=== PATIENT | female | born 1925 | race Caucasian/White ===

== ENCOUNTER 2016-11-14 12:02 | Inpatient (IN) | payer MEDICARE, BC, OTHER ==
[~2016-11-14] VITALS: Ht 175.3 cm; Wt 59.1 kg
[~2016-11-14 12:02] MED LIST: ACET325T9 PO; ALPR0.5T PO; AZEL137S3 NS; Amoxicillin/Potassium Clav PO; BRIN10DR EACHEYE; DABI75CA3 PO; FISH1CAP PO; LEVO75TA PO; LEVO75TA5 PO; LORA0.5T PO; LOSA50TA6 PO; MAGN400O4 PO; METR70GE14 VG; MOME13HF IH; MONT10TA9 PO; MULT-658 PO; OMEP40CA5 PO; PRED-220 PO; PROAIR HFA8.5 GM IH; TIOT18CA IH; TRIA15OI TP; XOPENEX0.63 MG/3 IH; [UNRECOGNIZED DRUG - OTHER]
--- NOTE | 2016-11-14 12:20 | RAD ---
Exam performed: CT scan of the head without contrast. Date of Service: 11/14/16. Comparison: 11/03/16. Clinical History: Altered mental status, code stroke. Technique: Helical acquisitions are obtained from the foramen magnum to the vertex without intravenous administration of contrast. Findings: There is prominence of cortical sulci and ventricular system compatible with age related atrophy. There are areas of low-attenuation in both periventricular deep white matter suggesting small vessel ischemic changes. There is a large right lacunar infarct. Normal gutierrez-white differentiation is maintained. There is no extra axial fluid collection, intraparenchymal hemorrhage or mass lesion. The visualized portions of the orbits, paranasal sinuses and the mastoid air cells appear clear. The calvarium is intact. Impression: 1. Age-appropriate atrophy without any acute intracranial process. PQRS Compliance Statement: One or more of the following individualized dose reduction techniques were utilized for this examination: 1. Automated exposure control 2. Adjustment of the mA and/or kV according to patient size 3. Use of iterative reconstruction technique Results of this negative stroke protocol CT scan of the brain were given to Dr. Hale in the ER soon after completion of the study at 12.16 PM
--- NOTE | 2016-11-14 12:53 | EKG ---
[facility] [address] [place] [address] Test Date: 2016-11-14 Test Time: 12:31:44 Pat Name: MAYKEL CARTER Department: Room: Gender: F Manager Game: : [phone] Requested By: Guanakito STANTON Order Number: [id number] Reading MD: Matthew Adams Measurements Intervals [place] Rate: 101 P: DE: QRS: -13 QRSD: 82 T: -76 QT: 320 QTc: 416 Interpretive Statements NON-SPECIFIC ST/T CHANGES ATRIAL FIBRILLATION WITH CONTROLLED VENTRICULAR RESPONSE Electronically Signed On 11-20-2016 14:19:49 [employer] SERVICES SPECIALIST by Matthew Adams
--- NOTE | 2016-11-14 13:07 | RAD ---
Exam performed: One view chest. Indication: altered mental status; recent pneumonia Date of Service: 11/14/2016 2:33 PM Comparison: None available. Single AP upright portable view chest findings: Cardiomediastinal silhouette is within limits of normal. Ectatic tortuous aorta. Scattered airspace opacities are seen in both lungs which appear improved since previous study. No pleural effusion or pneumothorax is detected. The bony structures are normal. Impression: Scattered infiltrates throughout both lungs appears significantly improved since previous study.
[2016-11-14 13:08] LABS: BASO # 0.1 x10^3/uL (0.0-0.2); BASO % 0 % (0-3); EOS % 0 % (0-3); HEMATOCRIT 34.2 % (36.0-47.0); HEMOGLOBIN 11.1 g/dL (12.0-15.5); LYMPH # 1.4 x10^3/uL (1.0-4.8); LYMPH % 8 % (24-48); MEAN CORPUSCULAR HEMOGLOBIN 30 pg (25-35); MEAN CORPUSCULAR HGB CONC 33 g/dL (31-37); MEAN CORPUSCULAR VOLUME 91 fL (79-100); MONO % 6 % (0-9); NEUT % 86 % (31-73); PLATELET COUNT 431 x10^3/uL (140-400); RED BLOOD COUNT 3.76 x10^6/uL (3.50-5.40); RED CELL DISTRIBUTION WIDTH 14.2 % (11.5-14.5); WHITE BLOOD COUNT 16.9 x10^3/uL (4.0-11.0)
[2016-11-14 13:21] LABS: CALCIUM 9.4 mg/dL (8.5-10.1); CREATININE 1.4 mg/dL (0.6-1.0); GFR 35.4; POTASSIUM 3.6 mmol/L (3.5-5.1)
--- NOTE | 2016-11-14 13:24 | PHYS DOC ---
Past Medical History Past Medical History: A-Fib, Asthma, Bronchitis, CAD, COPD, GERD, Hypertension , Hypothyroid, Pneumonia, Stroke, UTI Past Surgical History: Cholecystectomy, Hysterectomy, Knee Replacement Alcohol Use: None Drug Use: None Adult General Chief Complaint Chief Complaint: ALTERED MENTAL STATUS HPI HPI Patient is a 89 year old female who presents with from nursing facility for acute mental status changes. Nursing facility states she was last known normal approximately 11:30 at rehabilitation, but sons notes she has not been entirely normal day. She has been sleepy for most of the day, but was following commands and speaking. When she returned from rehabilitation, she was no longer speaking or following commands. Sons state since her discharge she has continued to take thickened liquids in very small amounts for her meals and has continued dysphagia. They otherwise deny vomiting or diarrhea. The patient does not answer any questions. Review of Systems Review of Systems Unable to obtain secondary to clinical status Allergies Allergies Allergies Coded Allergies Type Severity Reaction Last Updated Verified doxycycline Allergy Intermediate 10/27/16 Yes morphine Allergy Intermediate 10/27/16 Yes naproxen Allergy Intermediate 10/27/16 Yes Physical Exam Physical Exam Constitutional: Well developed, well nourished, severe distress, non-toxic appearance. [] HENT: Normocephalic, atraumatic, bilateral external ears normal, oropharynx moist, no oral exudates, nose normal. [] Eyes: Right pupil midsize and minimally reactive, left pupil midsize and briskly reactive, pupils equal, conjunctiva normal, no discharge. Unable to assess extraocular movements as she does not follow commands. [] Neck: Normal range of motion, no tenderness, supple. [] Cardiovascular: Irregular tachycardia [] Lungs & Thorax: Coarse bilateral breath sounds that are equal, gurgling respirations [] Abdomen: Bowel sounds normal, soft, no tenderness. [] Skin: Warm, dry, no erythema, no rash. [] Back: No tenderness, no CVA tenderness. [] Extremities: No tenderness, no edema. [] Neurologic: Opens eyes spontaneously, does not move extremities but responds to pain, does not speak. [] Psychologic: Unable to assess secondary to clinical status. [] Current Patient Data Vital Signs Vital Signs Date Time Temp Pulse Resp B/P Pulse Ox O2 Delivery O2 Flow Rate FiO2 11/14/16 12:51 104 28 114/57 94 11/14/16 12:26 Nasal Cannula 4 11/14/16 12:20 99.1 99.1 Lab Values Laboratory Tests Test 11/14/16 12:45 White Blood Count 16.9x10^3/uL (4.0-11.0) H Red Blood Count 3.76x10^6/uL (3.50-5.40) Hemoglobin 11.1g/dL (12.0-15.5) L Hematocrit 34.2% (36.0-47.0) L Mean Corpuscular Volume 91fL (79-100) Mean Corpuscular Hemoglobin 30pg (25-35) Mean Corpuscular Hemoglobin Concent 33g/dL (31-37) Red Cell Distribution Width 14.2% (11.5-14.5) Platelet Count 431x10^3/uL (140-400) H Neutrophils (%) (Auto) 86% (31-73) H Lymphocytes (%) (Auto) 8% (24-48) L Monocytes (%) (Auto) 6% (0-9) Eosinophils (%) (Auto) 0% (0-3) Basophils (%) (Auto) 0% (0-3) Neutrophils # (Auto) 14.5x10^3uL (1.8-7.7) H Lymphocytes # (Auto) 1.4x10^3/uL (1.0-4.8) Monocytes # (Auto) 0.9x10^3/uL (0.0-1.1) Eosinophils # (Auto) 0.0x10^3/uL (0.0-0.7) Basophils # (Auto) 0.1x10^3/uL (0.0-0.2) Segmented Neutrophils % 60% (35-66) Band Neutrophils % 27% (0-9) H Lymphocytes % 2% (24-48) L Atypical Lymphocytes % (Manual) 6% (0-0) H Monocytes % 5% (0-10) Platelet Estimate Increased (ADEQUATE) Sodium Level 147mmol/L (136-145) H Potassium Level 3.6mmol/L (3.5-5.1) Chloride Level 108mmol/L (98-107) H Carbon Dioxide Level 28mmol/L (21-32) Anion Gap 11 (6-14) Blood Urea Nitrogen 33mg/dL (7-20) H Creatinine 1.4mg/dL (0.6-1.0) H Estimated GFR (Cockcroft-Gault) 35.4 Glucose Level 129mg/dL (70-99) H Lactic Acid Level 2.1mmol/L (0.4-2.0) H Calcium Level 9.4mg/dL (8.5-10.1) Laboratory Tests 11/14/16 12:45 Laboratory Tests 11/14/16 12:45 EKG EKG EKG as interpreted by me as A. fib, rate 101, no ST-T changes Radiology/Procedures Radiology/Procedures Chest x-ray was improving bilateral infiltrates compared to prior exam Head CT without contrast Impression: 1. Age-appropriate atrophy without any acute intracranial process. Results of this negative stroke protocol CT scan of the brain were given to Dr. Stanton in the ER soon after completion of the study at 12.16 PM DICTATED and SIGNED BY: NEY BRANHAM MD DATE: 11/14/16 1215 Course & Med Decision Making Course & Med Decision Making Pertinent Labs and Imaging studies reviewed. (See chart for details) Per chart review, she was recently admitted for acute ischemic stroke with dysphagia. She was placed on thickened meals and palliate care was involved with resulting decision of DNR/DNI. Family is now interested in hospice care as she is no longer succeeding with current level of care. Discussed case with Dr. Hillman, PCP, who agrees with admission for palliative care consult and to set up hospice care. He recommends no major interventions at this time, and family agrees with this plan. Palliative care consult placed. Dragon Disclaimer Dragon Disclaimer This electronic medical record was generated, in whole or in part, using a voice recognition dictation system. Departure Departure Impression: Primary Impression: Altered mental status Additional Impression: Dysphagia Disposition: ADMITTED INPATIENT Condition: GRAVE Referrals: MARISOL HILLMAN MD (PCP) Problem Qualifiers Primary Impression: Altered mental status Altered mental status type: coma Coma depth: [facility] coma 3-8 Coma timing: in the field (EMT or ambulance) Qualified Code: R40.2431 - Ashley coma scale score 3-8, in the field [EMT or ambulance] Additional Impression: Dysphagia Dysphagia type: unspecified Qualified Code: R13.10 - Dysphagia, unspecified Guanakito STATNON MD Nov 14, 2016 13:24
[2016-11-14 14:11] LABS: PLT ESTIMATE INCREASED (ADEQUATE)
[2016-11-14 14:15] VITALS: BP 90/60
--- NOTE | 2016-11-14 14:55 | ACF ---
Admission Forms Criteria MENTAL STATUS CHANGE Clinical Indications for Inpatient Care (Place 'X' for any and all applicable criteria): Ongoing inpatient care may be needed for ANY ONE of the following(1)(2)(3)(5)(6) : [X]I. Suspected serious etiology (eg, medical disorder, SENIOR PARTNER event) of mental status change [ ]II. Danger to self or others not manageable at lower level of care [ ]III. Grave disability (eg, inability to perform self care necessary at lower level of care) [ ]IV. Agitation or inappropriate behavior interfering with care for primary condition (eg, attempting to discontinue lines or drains prematurely, unable to cooperate with respiratory care) [ ]V. Delirium [A] [D][E] as described by ANY ONE of the following(26): [ ]a) Delirium due to alcohol or sedative [F] withdrawal [ ]b) Delirium of uncertain etiology that has not responded to appropriate empiric treatment [ ]c) Delirium that prevents performance of a life-sustaining function (eg, feeding or hydrating oneself) [ ]. General contraindications and/or Inappropriate clinical situations for Observational Care in patients with Mental Status Change, when ANY ONE of the following is required: [ ]a) Prediction of prolongation of LOS based on ANY ONE of the following may be considered as a contraindication for observational care 2, 3, 4, 5, 6, 7, 8, 9, 10, 11 [ ]i) Age > 65 yrs. [ ]ii) Patient arriving by ambulance [ ]iii) Patient with high acuity [ ]iv) Patient requiring vital sign monitoring [ ]v) Patient on IV medication [ ]b) Systolic blood pressures 180mmHg 3,12 [ ]c) Patient with altered mental status including delirium and other alteration of consciousness, (3) [ ]d) Patient whose discharge disposition will be to a [facility] home or rehabilitation home should not be managed in Emergency Department Observation Unit. CMS rule requires 3 days hospital stay before such placement.3,13 [ ]e) Patient with failure to thrive due to broad array of etiologies 3,16,17 [ ]f) Inability to ambulate 3,14 Extended stay beyond goal length of stay for the primary condition may be needed until ALL of the following are present(3)(5): [ ]a) Underlying medical etiology of mental status change is absent, or has been established and adequately treated [ ]b) Danger to self or others is absent or manageable at lower level of care. [ ]c) Behavior crisis management, including physical or chemical restraints, is not required or available at lower level of car [ ]d) Substance or alcohol withdrawal is absent or manageable at lower level of care. [ ]e) Behavioral symptoms (eg, agitation, somnolence, inappropriate behavior) are absent, or are manageable at lower level of care. The original [facility] content created by [facility] has been revised. The portions of the content which have been revised are identified through the use of italic text or in bold, and [facility] has neither reviewed nor approved the modified material. All other unmodified content is copyright [facility]. Please see references footnoted in the original [facility] edition 2016 Admission Criteria Met?: Yes RICCARDO GILL Nov 14, 2016 14:55
[2016-11-14] MEDS ORDERED: MORPHINE SULFATE 20 MG/ML CONC SOLUTION. SL PRN ×2 (16:45→17:00)
[2016-11-14] MEDS ORDERED: FENTANYL 25MCG/HR PATCH. TD SCH (16:46)
[2016-11-14] MEDS: MORPHINE SULFATE 20 MG/ML CONC SOLUTION. SL PRN ×3 (17:09→20:47)
[2016-11-14 19:00] VITALS: BP 120/54
--- NOTE | 2016-11-14 19:07 | PDOC2 ---
PALLIATIVE CARE Palliative Care Note Palliative Care Consult requested by Dr. Hale. Emergency Room. Patient known to PC from previous admission ER records reviewed. Probable CVA; dysphagia Patient unresponsive. Met with sons Wiley and Adrian. State patient had not progressed well in rehabilitation. Increased lethargy and sudden change in LOC when returned from therapy. They would like to focus on comfort. Home with [facility]. Patient receiving oral morphine for increased respiratory effort. Will evaluate in am. Family would like to take her home with Hospice when discharged. Outside the Hospital DNR/DNI form completed. will need physician signature. BRANDYN KAUFMAN Nov 14, 2016 19:07
[2016-11-14 23:00] VITALS: BP 105/48
[2016-11-15] MEDS: MORPHINE SULFATE 20 MG/ML CONC SOLUTION. SL PRN ×2 (02:56→05:20)
[2016-11-15 03:08] VITALS: BP 111/54
[2016-11-15 07:22] VITALS: BP 86/39
--- NOTE | 2016-11-15 08:28 | DISCH ---
DISCHARGE FINAL DIAGNOSIS Problems Medical Problems: (1) Altered mental status Status: Acute (2) Dysphagia Status: Acute (3) Mental status change Status: Acute CONDITION ON DISCHARGE: Stable HOSPICE: Yes HOSPICE EVAL & TREAT: Yes POST DISCHARGE ORDERS ACTIVITY ORDERS: Activity as tolerated DIET AFTER DISCHARGE: NPO FOLLOW-UP PHYSICIAN FOLLOW-UP: MARISOL Summers MD Nov 15, 2016 08:28
--- NOTE | 2016-11-15 08:30 | PDOC ---
Provider Note Provider Note [id number] MARISOL HILLMAN MD Nov 15, 2016 08:30
--- NOTE | 2016-11-15 09:39 | SSS ---
ADMIT DATE: 11/15/2016 HOSPITAL SUMMARY: An 89-year-old white female transferred from [facility] for altered mental status and increasing respiratory distress. She had recently been admitted after stroke and some pneumonia, felt to be influenza and aspiration related. She may have had another stroke and further respiratory distress, now obtunded and nonresponsive. She is a DNR and family wishes for her to go home with hospice for her remaining days of life. The chest x-ray showed improving pulmonary infiltrates. CBC and chemistry profile were unremarkable except for prerenal azotemia. She is somnolent, not responsive and with respiratory rate at about 6-8 at this time after some morphine. Family is comfortable for terminal care at home. FINAL DIAGNOSES: 1. Recurrent cerebrovascular accident. 2. Aspiration pneumonia. 3. End-of-life care. OPERATIONS, PROCEDURES, COMPLICATIONS, AND CONSULTATIONS: None. DISPOSITION: Home with hospice on Roxanol 5-10 mg p.r.n. for respiratory distress and pain behavior, no oral medications or oral intake. She is terminally ill, expected to last hours to a few days at most. MARISOL HILLMAN MD DR: DORIS/alva JOB#: [id number] / [id number]
== END 2016-11-15 08:54 | DRG 177 ==
LOC: ER 12:02 → 6 SOUTH 13:05
PROVIDERS: ADMIT Family Medicine; ATTEND Family Medicine
DX: J69.0 Pneumonitis due to inhalation of food and vomit (principal); G93.41 Metabolic encephalopathy; J96.20 Acute and chronic respiratory failure, unspecified whether with hypoxia or hypercapnia; J44.0 Chronic obstructive pulmonary disease with (acute) lower respiratory infection; E03.9 Hypothyroidism, unspecified; I10 Essential (primary) hypertension; I25.10 Atherosclerotic heart disease of native coronary artery without angina pectoris; I48.91 Unspecified atrial fibrillation; J45.909 Unspecified asthma, uncomplicated; Z96.659 Presence of unspecified artificial knee joint; K21.9 Gastro-esophageal reflux disease without esophagitis; Z51.5 Encounter for palliative care; Z86.73 Personal history of transient ischemic attack (TIA), and cerebral infarction without residual deficits; Z90.49 Acquired absence of other specified parts of digestive tract; Z90.710 Acquired absence of both cervix and uterus; Z87.440 Personal history of urinary (tract) infections; Z88.6 Allergy status to analgesic agent; Z88.8 Allergy status to other drugs, medicaments and biological substances; Z66 Do not resuscitate
CPT/HCPCS: 36415; 70450; 71010; 80048; 83605; 85007; 85027; 87040; 87641; 93005; 99285-25